=== PATIENT | male | born 1980 | race Caucasian/White ===

== ENCOUNTER 2016-12-29 11:45 | Emergency (ER) | payer OTHER ==
[~2016-12-29] VITALS: Ht 175.3 cm; Wt 77.1 kg
[2016-12-29] MEDS ORDERED: IPRATRPIUM/ALBUTEROL 0.5/2.5MG 3 ML NEBU. NEB ONE (12:15)
[2016-12-29] MEDS ORDERED: IV NORMAL SALINE 1000ML BAG 1,000 ML IV ONE (12:15)
[2016-12-29 12:42] LABS: BASO # 0.1 x10^3/uL (0.0-0.2); BASO % 1 % (0-3); EOS % 3 % (0-3); HEMATOCRIT 35.3 % (39.0-53.0); HEMOGLOBIN 12.4 g/dL (13.0-17.5); LYMPH # 2.6 x10^3/uL (1.0-4.8); LYMPH % 41 % (24-48); MEAN CORPUSCULAR HEMOGLOBIN 32 pg (25-35); MEAN CORPUSCULAR HGB CONC 35 g/dL (31-37); MEAN CORPUSCULAR VOLUME 90 fL (79-100); MONO % 8 % (0-9); NEUT % 47 % (31-73); PLATELET COUNT 236 x10^3/uL (140-400); RED BLOOD COUNT 3.92 x10^6/uL (4.30-5.70); RED CELL DISTRIBUTION WIDTH 13.2 % (11.5-14.5); WHITE BLOOD COUNT 6.4 x10^3/uL (4.0-11.0)
--- NOTE | 2016-12-29 12:46 | EKG ---
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
[2016-12-29 13:03] LABS: CALCIUM 8.1 mg/dL (8.5-10.1); CREATININE 1.3 mg/dL (0.7-1.3); GFR 62.8; POTASSIUM 4.1 mmol/L (3.5-5.1)
[2016-12-29 13:08] LABS: BILIRUBIN,URINE NEGATIVE (NEG); GLUCOSE,URINE NEGATIVE (NEG); NITRITE,URINE NEGATIVE (NEG); PH,URINE 6.5; PROTEIN,URINE NEGATIVE (NEG-TRACE); UROBILINOGEN,URINE 0.2 mg/dL (0.2 mg/dL)
--- NOTE | 2016-12-29 13:14 | RAD ---
Portable chest, 12/29/2016: History: Cough, chest pressure, shortness of breath The heart size is normal. The lungs are clear. There is no evidence of pleural fluid. There is an old healed right clavicular fracture. IMPRESSION: No acute cardiopulmonary abnormality is detected.
[2016-12-29 13:16] LABS: BARBITURATES NEG (NEG); BENZODIAZEPINES NEG (NEG); CANNABINOIDS NEG (NEG); COCAINE NEG (NEG); METHADONE NEG (NEG); OPIATES NEG (NEG); PHENCYCLIDINE NEG (NEG)
[2016-12-29 13:17] LABS: BACTERIA,URINE 0 /HPF (0-FEW); RBC,URINE 0 /HPF (0-2); WBC,URINE 0 /HPF (0-4)
[2016-12-29 13:17] LABS: ALBUMIN 3.3 g/dL (3.4-5.0); ALBUMIN/GLOBULIN RATIO 1.1 (1.0-1.7); MAGNESIUM 1.8 mg/dL (1.8-2.4); TOTAL BILIRUBIN 0.5 mg/dL (0.2-1.0); TOTAL PROTEIN 6.2 g/dL (6.4-8.2)
[2016-12-29 13:44] VITALS: BP 127/67
--- NOTE | 2016-12-29 13:46 | PHYS DOC ---
Past Medical History Past Medical History: Anxiety, Migraines Past Surgical History: No Surgical History Alcohol Use: Occasionally Drug Use: None Adult General Chief Complaint Chief Complaint: SYNCOPE HPI HPI Patient is a 36 year old male presenting to the emergency department for evaluation of a syncopal episode that occurred while having a coughing spell at work. He says that he has had some cough recently but no fevers chills shortness of breath. Patient says that he is feeling somewhat sleepy now but he denies any pain nausea vomiting. He says that he is healthy and takes no medications and denies using drugs or drinking alcohol. Review of Systems Review of Systems Constitutional: Denies fever or chills [] Eyes: Denies change in visual acuity, redness, or eye pain [] HENT: Denies nasal congestion or sore throat [] Respiratory: + cough. No shortness of breath [] Cardiovascular: No additional information not addressed in HPI [] GI: Denies abdominal pain, nausea, vomiting, bloody stools or diarrhea [] : Denies dysuria or hematuria [] Musculoskeletal: Denies back pain or joint pain [] Integument: Denies rash or skin lesions [] Neurologic: Denies headache, focal weakness or sensory changes [] Current Medications Current Medications Current Medications Medications (Trade) Dose Ordered Sig/Gricelda Start Time Stop Time Status Last Admin Dose Admin Albuterol/ Ipratropium (Duoneb) 3 ml 1X ONCE 12/29/16 12:15 12/29/16 12:19 DC 12/29/16 13:05 3 ML Sodium Chloride 1,000 ml @ 1,000 mls/hr 1X ONCE 12/29/16 12:15 12/29/16 13:14 DC 12/29/16 12:58 1,000 MLS/HR Allergies Allergies Allergies Coded Allergies Type Severity Reaction Last Updated Verified No Known Drug Allergies 12/29/16 No Physical Exam Physical Exam Constitutional: Well developed, well nourished, no acute distress, non-toxic appearance. [] HENT: Normocephalic, atraumatic, bilateral external ears normal, oropharynx moist, no oral exudates, nose normal. [] Eyes: PERRLA, EOMI, conjunctiva normal, no discharge. [] Neck: Normal range of motion, no tenderness, supple, no stridor. [] Cardiovascular:Heart rate regular rhythm, no murmur [] Lungs & Thorax: Bilateral breath sounds clear to auscultation [] Abdomen: Bowel sounds normal, soft, no tenderness, no masses, no pulsatile masses. [] Skin: Warm, dry, no erythema, no rash. [] Back: No tenderness, no CVA tenderness. [] Extremities: No tenderness, no cyanosis, no clubbing, ROM intact, no edema. [] Neurologic: Alert and oriented X 3, normal motor function, normal sensory function, no focal deficits noted. [] Current Patient Data Vital Signs Vital Signs Date Time Temp Pulse Resp B/P (MAP) Pulse Ox O2 Delivery O2 Flow Rate FiO2 12/29/16 13:08 100 Room Air 12/29/16 12:14 68 13 117/63 (81) 12/29/16 11:50 98.0 98.0 Lab Values Laboratory Tests Test 12/29/16 12:30 12/29/16 13:00 White Blood Count 6.4 x10^3/uL (4.0-11.0) Red Blood Count 3.92 x10^6/uL (4.30-5.70) L Hemoglobin 12.4 g/dL (13.0-17.5) L Hematocrit 35.3 % (39.0-53.0) L Mean Corpuscular Volume 90 fL (79-100) Mean Corpuscular Hemoglobin 32 pg (25-35) Mean Corpuscular Hemoglobin Concent 35 g/dL (31-37) Red Cell Distribution Width 13.2 % (11.5-14.5) Platelet Count 236 x10^3/uL (140-400) Neutrophils (%) (Auto) 47 % (31-73) Lymphocytes (%) (Auto) 41 % (24-48) Monocytes (%) (Auto) 8 % (0-9) Eosinophils (%) (Auto) 3 % (0-3) Basophils (%) (Auto) 1 % (0-3) Neutrophils # (Auto) 3.0 x10^3uL (1.8-7.7) Lymphocytes # (Auto) 2.6 x10^3/uL (1.0-4.8) Monocytes # (Auto) 0.5 x10^3/uL (0.0-1.1) Eosinophils # (Auto) 0.2 x10^3/uL (0.0-0.7) Basophils # (Auto) 0.1 x10^3/uL (0.0-0.2) Sodium Level 140 mmol/L (136-145) Potassium Level 4.1 mmol/L (3.5-5.1) Chloride Level 106 mmol/L (98-107) Carbon Dioxide Level 28 mmol/L (21-32) Anion Gap 6 (6-14) Blood Urea Nitrogen 22 mg/dL (8-26) Creatinine 1.3 mg/dL (0.7-1.3) Estimated GFR (Cockcroft-Gault) 62.8 BUN/Creatinine Ratio 17 (6-20) Glucose Level 102 mg/dL (70-99) H Calcium Level 8.1 mg/dL (8.5-10.1) L Magnesium Level 1.8 mg/dL (1.8-2.4) Total Bilirubin 0.5 mg/dL (0.2-1.0) Aspartate Amino Transferase (AST) 22 U/L (15-37) Alanine Aminotransferase (ALT) 29 U/L (16-63) Alkaline Phosphatase 91 U/L (46-116) Creatine Kinase 467 U/L (39-308) H Troponin I Quantitative < 0.017 ng/mL (0.000-0.055) Total Protein 6.2 g/dL (6.4-8.2) L Albumin 3.3 g/dL (3.4-5.0) L Albumin/Globulin Ratio 1.1 (1.0-1.7) Ethyl Alcohol Level < 10 mg/dL (0-10) Urine Collection Type Unknown Urine Color Yellow Urine Clarity Clear Urine pH 6.5 Urine Specific Icard 1.025 Urine Protein Negative mg/dL (NEG-TRACE) Urine Glucose (UA) Negative mg/dL (NEG) Urine Ketones (Stick) Negative mg/dL (NEG) Urine Blood Negative (NEG) Urine Nitrite Negative (NEG) Urine Bilirubin Negative (NEG) Urine Urobilinogen Dipstick 0.2 mg/dL (0.2 mg/dL) Urine Leukocyte Esterase Negative (NEG) Urine RBC 0 /HPF (0-2) Urine WBC 0 /HPF (0-4) Urine Bacteria 0 /HPF (0-FEW) Urine Hyaline Casts Occasional /HPF Urine Mucus Slight /LPF Urine Opiates Screen Neg (NEG) Urine Methadone Screen Neg (NEG) Urine Barbiturates Neg (NEG) Urine Phencyclidine Screen Neg (NEG) Urine Amphetamine/Methamphetamine Pos (NEG) Urine Benzodiazepines Screen Neg (NEG) Urine Cocaine Screen Neg (NEG) Urine Cannabinoids Screen Neg (NEG) Urine Ethyl Alcohol Neg (NEG) Laboratory Tests 12/29/16 12:30 Laboratory Tests 12/29/16 12:30 EKG EKG Normal sinus rhythm with normal axis no obvious ST elevation or depression and normal T waves. Radiology/Procedures Radiology/Procedures Portable chest, 12/29/2016: History: Cough, chest pressure, shortness of breath The heart size is normal. The lungs are clear. There is no evidence of pleural fluid. There is an old healed right clavicular fracture. IMPRESSION: No acute cardiopulmonary abnormality is detected. DICTATED and SIGNED BY: SAY RICKS MD DATE: 12/29/16 1311 Course & Med Decision Making Course & Med Decision Making Patient with syncopal episode likely related to a coughing spell. Patient is feeling much better after IV fluids here and given he can tolerate fluids by mouth he'll be discharged with supportive treatment. Patient aware and agreeable with plan for discharge and verbalized understanding of the need for short-term PCP follow-up in the strict ER return precautions discussed and clear worsening pain charts of breath or other general concerns. Dragon Disclaimer Dragon Disclaimer This electronic medical record was generated, in whole or in part, using a voice recognition dictation system. Departure Departure Impression: Primary Impression: Syncope and collapse Additional Impression: Rhabdomyolysis Disposition: 01 HOME, SELF-CARE Condition: GOOD Referrals: NO PCP (PCP) Patient Instructions: Syncope Additional Instructions: DRINK PLENTY OF FLUIDS Problem Qualifiers LATONYA GROSS DO Dec 29, 2016 13:46
== END 2016-12-29 14:00 | disposition home or self-care (01) ==
LOC: ER 11:45
DX: R55 Syncope and collapse (principal); M62.82 Rhabdomyolysis; G43.909 Migraine, unspecified, not intractable, without status migrainosus; F41.9 Anxiety disorder, unspecified
CPT/HCPCS: 36415; 71010; 80053; 80307; 81001; 82550; 83735; 84484; 85027; 93005; 94250; 94640; 96360; 99285; C1887; G0480; J7030; J7620; G0479

== ENCOUNTER 2017-01-25 08:20 | Emergency (ER) | payer OTHER ==
[~2017-01-25] VITALS: Ht 172.7 cm; Wt 95.3 kg
--- NOTE | 2017-01-25 08:41 | PHYS DOC ---
Past Medical History Past Medical History: Anxiety, Migraines, Other Additional Past Medical Histor: INGUINAL HERNIA Past Surgical History: No Surgical History Alcohol Use: Occasionally Drug Use: None Adult General Chief Complaint Chief Complaint: GROIN PAIN HPI HPI Patient is a 36 year old female with history of inguinal hernia who presents today for left groin pain that began this morning. 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 Patient denies any dysuria urgency or frequency. Denies any fever. Review of Systems Review of Systems Constitutional: Denies fever or chills [] Eyes: Denies change in visual acuity, redness, or eye pain [] HENT: Denies nasal congestion or sore throat [] Respiratory: Denies cough or shortness of breath [] Cardiovascular: No additional information not addressed in HPI [] GI: Denies abdominal pain, nausea, vomiting, bloody stools or diarrhea [] : left groin pain Musculoskeletal: Denies back pain or joint pain [] Integument: Denies rash or skin lesions [] Neurologic: Denies headache, focal weakness or sensory changes [] Endocrine: Denies polyuria or polydipsia [] Current Medications Current Medications Current Medications Medications (Trade) Dose Ordered Sig/Gricelda Start Time Stop Time Status Last Admin Dose Admin Info (Do NOT chart on this entry -- for MONITORING) 1 each PRN DAILY PRN 01/25/17 08:45 01/27/17 08:44 Iohexol (Omnipaque 300 Mg/ml) 75 ml 1X ONCE 01/25/17 08:45 01/25/17 08:46 DC 01/25/17 09:24 75 ML Morphine Sulfate 5 mg 1X ONCE 01/25/17 09:45 01/25/17 09:46 DC 01/25/17 09:48 5 MG Sodium Chloride 1,000 ml @ 1,000 mls/hr 1X ONCE 01/25/17 08:45 01/25/17 09:44 DC 01/25/17 08:44 1,000 MLS/HR Allergies Allergies Allergies Coded Allergies Type Severity Reaction Last Updated Verified No Known Drug Allergies 12/29/16 No Physical Exam Physical Exam Constitutional: Well developed, well nourished, no acute distress, non-toxic appearance. [] HENT: Normocephalic, atraumatic, bilateral external ears normal, oropharynx moist, no oral exudates, nose normal. [] Eyes: PERRLA, EOMI, conjunctiva normal, no discharge. [] Neck: Normal range of motion, no tenderness, supple, no stridor. [] Cardiovascular:Heart rate regular rhythm, no murmur [] Lungs & Thorax: Bilateral breath sounds clear to auscultation [] Abdomen: Bowel sounds normal, soft, no tenderness, no masses, no pulsatile masses. [] Male exam Testicles appear large left worse than right with palpable masses. No pain on testicles on exam. No drainage. No redness. Skin: Warm, dry, no erythema, no rash. [] Back: No tenderness, no CVA tenderness. [] Extremities: No tenderness, no cyanosis, no clubbing, ROM intact, no edema. [] Neurologic: Alert and oriented X 3, normal motor function, normal sensory function, no focal deficits noted. [] Psychologic: Affect normal, judgement normal, mood normal. [] Current Patient Data Vital Signs Vital Signs Date Time Temp Pulse Resp B/P (MAP) Pulse Ox O2 Delivery O2 Flow Rate FiO2 01/25/17 11:04 50 18 117/65 (82) 99 Room Air 01/25/17 08:32 97.7 97.7 Lab Values Laboratory Tests Test 01/25/17 08:40 01/25/17 09:15 White Blood Count 8.3 x10^3/uL (4.0-11.0) Red Blood Count 4.12 x10^6/uL (4.30-5.70) L Hemoglobin 12.7 g/dL (13.0-17.5) L Hematocrit 37.4 % (39.0-53.0) L Mean Corpuscular Volume 91 fL (79-100) Mean Corpuscular Hemoglobin 31 pg (25-35) Mean Corpuscular Hemoglobin Concent 34 g/dL (31-37) Red Cell Distribution Width 13.0 % (11.5-14.5) Platelet Count 250 x10^3/uL (140-400) Neutrophils (%) (Auto) 57 % (31-73) Lymphocytes (%) (Auto) 32 % (24-48) Monocytes (%) (Auto) 8 % (0-9) Eosinophils (%) (Auto) 2 % (0-3) Basophils (%) (Auto) 1 % (0-3) Neutrophils # (Auto) 4.8 x10^3uL (1.8-7.7) Lymphocytes # (Auto) 2.7 x10^3/uL (1.0-4.8) Monocytes # (Auto) 0.6 x10^3/uL (0.0-1.1) Eosinophils # (Auto) 0.2 x10^3/uL (0.0-0.7) Basophils # (Auto) 0.1 x10^3/uL (0.0-0.2) Sodium Level 140 mmol/L (136-145) Potassium Level 3.7 mmol/L (3.5-5.1) Chloride Level 105 mmol/L (98-107) Carbon Dioxide Level 29 mmol/L (21-32) Anion Gap 6 (6-14) Blood Urea Nitrogen 15 mg/dL (8-26) Creatinine 0.9 mg/dL (0.7-1.3) Estimated GFR (Cockcroft-Gault) 96.0 BUN/Creatinine Ratio 17 (6-20) Glucose Level 96 mg/dL (70-99) Calcium Level 8.4 mg/dL (8.5-10.1) L Total Bilirubin 0.5 mg/dL (0.2-1.0) Aspartate Amino Transferase (AST) 23 U/L (15-37) Alanine Aminotransferase (ALT) 40 U/L (16-63) Alkaline Phosphatase 67 U/L (46-116) Total Protein 6.5 g/dL (6.4-8.2) Albumin 3.4 g/dL (3.4-5.0) Albumin/Globulin Ratio 1.1 (1.0-1.7) Lipase 404 U/L (73-393) H Urine Collection Type Unknown Urine Color Yellow Urine Clarity Clear Urine pH 6.0 Urine Specific [place] 1.020 Urine Protein Negative mg/dL (NEG-TRACE) Urine Glucose (UA) Negative mg/dL (NEG) Urine Ketones (Stick) Negative mg/dL (NEG) Urine Blood Negative (NEG) Urine Nitrite Negative (NEG) Urine Bilirubin Negative (NEG) Urine Urobilinogen Dipstick 0.2 mg/dL (0.2 mg/dL) Urine Leukocyte Esterase Negative (NEG) Urine RBC Occ /HPF (0-2) Urine WBC Occ /HPF (0-4) Urine Squamous Epithelial Cells Occ /LPF Urine Bacteria Few /HPF (0-FEW) Urine Mucus Marked /LPF Laboratory Tests 01/25/17 08:40 Laboratory Tests 01/25/17 08:40 EKG EKG [] Radiology/Procedures Radiology/Procedures []PROCEDURE: CT ABD PELV W/ IV CONTRST ONLY Exam performed: CT scan of the abdomen and pelvis with contrast Clinical Indication:Left groin pain, history of internal hernia Date of Service:01/25/17 comparison: None available Technique: Contiguous helical acquisitions are obtained from the lung bases to the pelvis during intravenous administration of [75 cc of Omnipaque 300]. Sagittal and coronal reformatted images were obtained and reviewed. CT abdomen findings: The lung bases appear essentially clear. Visualized heart is normal The liver, spleen ,gall bladder and pancreas appears unremarkable. Both adrenal glands and bilateral kidneys appear normal with symmetric excretion of contrast via both kidneys. The small bowel loops appear nondilated and unremarkable. Scattered stool in the colon. There is no retroperitoneal lymphadenopathy or mass lesions. No bowel related inflammatory stranding is noted. No obvious stranding is seen in the pericecal region. CT pelvis findings: There is a 2.2 cm left inguinal hernia containing omental fat. No inflammatory changes of incarceration seen. The pelvic bowel loops are nondilated and unremarkable. Scattered stool in the colon. The urinary bladder is well distended and normal . Prostate gland, seminal vesicles and the rectum appear normal. Interrogation of bone windows demonstrates no obvious bony abnormality. Sagittal and coronal reformatted images were obtained and reviewed which demonstrate no additional findings. Impression abdomen and pelvis : 1. A 2.2 cm left inguinal hernia containing omental fat. 2. Scattered stool throughout the colon. Correlate clinically for constipation. PQRS Compliance Statement: One or more of the following individualized dose reduction techniques were utilized for this examination: 1. Automated exposure control 2. Adjustment of the mA and/or kV according to patient size 3. Use of iterative reconstruction technique DICTATED and SIGNED BY: PIPPA DENNIS MD DATE: 01/25/17 0940 CC: DUNCAN VASQUEZ APRN; NO PCP ~ PROCEDURE: TESTICULAR/SCROTUM Scrotal ultrasound 01/17/2017 Clinical history: Left scrotal swelling. Technique: Using examination of real-time ultrasound imaging and color-flow and pulse Doppler imaging techniques, duplex evaluation of the scrotal sac and its contents was performed. Multiple images were obtained. Findings: Comparison is made to the patient's CT scan of the abdomen and pelvis performed earlier today. Both testicles are within normal limits in size. The right testicle measures 4.6 x 2.7 x 2.0 cm in longitudinal, transverse, and AP dimensions. The left testicle measures 4.6 x 2.5 x 2.2 cm in size. No focal abnormality of the right testicle is seen. A 3 mm mm cyst is seen involving the anterior superior aspect of the left testicle. Normal color flow and pulse Doppler imaging to both testicles is seen. Both epididymal heads are within normal limits in size. A 6 mm cyst is seen involving the left epididymal head. No abnormality of the right epididymal head is seen. There is a small left hydrocele. No varicocele is noted. There is a moderate to large sized fat-containing left inguinal hernia. No bowel loops are seen within the hernia sac. Impression: 1. Moderate to large sized fat-containing left inguinal hernia. 2. 3 mm cyst is seen involving the left testicle. 3. 6 mm cyst is seen involving the left epididymal head. 4. Small left hydrocele. DICTATED and SIGNED BY: MEG AMOR MD DATE: 01/25/17 1131 CC: DUNCAN VASQUEZ APRN; NO PCP ~ Course & Med Decision Making Course & Med Decision Making Pertinent Labs and Imaging studies reviewed. (See chart for details) Patient is in the ED with left groin pain and bowels in his testicles from an inguinal hernia. He does have history of left inguinal hernia. He is pain free in the Ed after receiving Morphine enroute to the Ed via EMS. Patient's labs are negative for any acute findings. CT of the abdomen and pelvic with IV contrast was noted for 2.2 cm left inguinal hernia containing fat. No scattered stool throughout the colon, patient denies any constipation. I recommended [id number] bowel preps. Testicular ultrasounds were done and noted for moderate to large size fat containing left inguinal hernia, 3 mm cyst seen in the left testicle, 6 mm seen involving the left epididymal head, and small hydrocele. Patient's pain is well-controlled in the ED. We provided him a general surgeon to follow up for the inguinal hernia. We recommended he follows up with the urologist of his own choice for this cyst. He was provided return precautions and discharged in stable condition. Dragon Disclaimer Dragon Disclaimer This electronic medical record was generated, in whole or in part, using a voice recognition dictation system. Departure Departure Impression: Primary Impression: Left inguinal hernia Additional Impressions: Hydrocele in adult Epididymal cyst Constipation Disposition: HOME, SELF-CARE Condition: STABLE Referrals: NO PCP (PCP) ZULEIMA CHUA MD follow up with the provided doctor as soon as you can for the hernia Patient Instructions: Constipation, Adult, Inguinal Hernia, Adult Additional Instructions: You were seen for left inguinal hernia. We provided do a general surgeon, call his office today and set up a follow-up appointment. Contact any Hospital of your choice and establish care with a urologist. The [facility] does not have a urologist. Come back to the ED symptoms worsen. Consider taking magnesium citrate because he is CT shows you could be constipated. Scripts Polyethylene Glycol 3350 (MIRALAX) 17 Gm Powd.pack 1 PACKET PO DAILY, #30 PACKET 3 Refills Prov: DUNCAN VASQUEZ APRN 01/25/17 Hydrocodone/Apap 5-325 (NORCO 5-325 TABLET) 1 Each Tablet 1-2 TAB PO Q4-6HRS, #12 TAB Prov: DUNCAN VASQUEZ APRN 01/25/17 Problem Qualifiers Additional Impressions: Constipation Constipation type: unspecified constipation type Qualified Codes: K59.00 - Constipation, unspecified DUNCAN VASQUEZ APRN Jan 25, 2017 08:41
[2017-01-25] MEDS ORDERED: IV NORMAL SALINE 1000ML BAG 1,000 ML IV ONE (08:45)
[2017-01-25] MEDS ORDERED: CONTRAST GIVEN MC PRN (08:45)
[2017-01-25] MEDS ORDERED: IOHEXOL 300 MG/ML 75 ML VIAL IV ONE (08:45)
[2017-01-25 08:54] LABS: BASO # 0.1 x10^3/uL (0.0-0.2); BASO % 1 % (0-3); EOS % 2 % (0-3); HEMATOCRIT 37.4 % (39.0-53.0); HEMOGLOBIN 12.7 g/dL (13.0-17.5); LYMPH # 2.7 x10^3/uL (1.0-4.8); LYMPH % 32 % (24-48); MEAN CORPUSCULAR HEMOGLOBIN 31 pg (25-35); MEAN CORPUSCULAR HGB CONC 34 g/dL (31-37); MEAN CORPUSCULAR VOLUME 91 fL (79-100); MONO % 8 % (0-9); NEUT % 57 % (31-73); PLATELET COUNT 250 x10^3/uL (140-400); RED BLOOD COUNT 4.12 x10^6/uL (4.30-5.70); WHITE BLOOD COUNT 8.3 x10^3/uL (4.0-11.0)
[2017-01-25 09:13] LABS: CALCIUM 8.4 mg/dL (8.5-10.1); CREATININE 0.9 mg/dL (0.7-1.3); POTASSIUM 3.7 mmol/L (3.5-5.1)
[2017-01-25 09:14] LABS: ALBUMIN 3.4 g/dL (3.4-5.0); ALBUMIN/GLOBULIN RATIO 1.1 (1.0-1.7); TOTAL BILIRUBIN 0.5 mg/dL (0.2-1.0); TOTAL PROTEIN 6.5 g/dL (6.4-8.2)
[2017-01-25 09:32] LABS: BILIRUBIN,URINE NEGATIVE (NEG); GLUCOSE,URINE NEGATIVE (NEG); NITRITE,URINE NEGATIVE (NEG); PROTEIN,URINE NEGATIVE (NEG-TRACE); UROBILINOGEN,URINE 0.2 mg/dL (0.2 mg/dL)
[2017-01-25 09:39] LABS: BACTERIA,URINE FEW /HPF (0-FEW); SQUAMOUS EPITHELIAL CELL,UR OCC /LPF
[2017-01-25 09:40] LABS: RBC,URINE OCC /HPF (0-2); WBC,URINE OCC /HPF (0-4)
[2017-01-25] MEDS ORDERED: MORPHINE SULFATE 10 MG/ML VIAL. IV ONE (09:45)
--- NOTE | 2017-01-25 09:46 | RAD ---
Exam performed: CT scan of the abdomen and pelvis with contrast Clinical Indication:Left groin pain, history of internal hernia Date of Service:01/25/17 comparison: None available Technique: Contiguous helical acquisitions are obtained from the lung bases to the pelvis during intravenous administration of [75 cc of Omnipaque 300]. Sagittal and coronal reformatted images were obtained and reviewed. CT abdomen findings: The lung bases appear essentially clear. Visualized heart is normal The liver, spleen ,gall bladder and pancreas appears unremarkable. Both adrenal glands and bilateral kidneys appear normal with symmetric excretion of contrast via both kidneys. The small bowel loops appear nondilated and unremarkable. Scattered stool in the colon. There is no retroperitoneal lymphadenopathy or mass lesions. No bowel related inflammatory stranding is noted. No obvious stranding is seen in the pericecal region. CT pelvis findings: There is a 2.2 cm left inguinal hernia containing omental fat. No inflammatory changes of incarceration seen. The pelvic bowel loops are nondilated and unremarkable. Scattered stool in the colon. The urinary bladder is well distended and normal . Prostate gland, seminal vesicles and the rectum appear normal. Interrogation of bone windows demonstrates no obvious bony abnormality. Sagittal and coronal reformatted images were obtained and reviewed which demonstrate no additional findings. Impression abdomen and pelvis : 1. A 2.2 cm left inguinal hernia containing omental fat. 2. Scattered stool throughout the colon. Correlate clinically for constipation. PQRS Compliance Statement: One or more of the following individualized dose reduction techniques were utilized for this examination: 1. Automated exposure control 2. Adjustment of the mA and/or kV according to patient size 3. Use of iterative reconstruction technique
[2017-01-25 11:04] VITALS: BP 117/65
--- NOTE | 2017-01-25 11:39 | RAD ---
Scrotal ultrasound 01/17/2017 Clinical history: Left scrotal swelling. Technique: Using examination of real-time ultrasound imaging and color-flow and pulse Doppler imaging techniques, duplex evaluation of the scrotal sac and its contents was performed. Multiple images were obtained. Findings: Comparison is made to the patient's CT scan of the abdomen and pelvis performed earlier today. Both testicles are within normal limits in size. The right testicle measures 4.6 x 2.7 x 2.0 cm in longitudinal, transverse, and AP dimensions. The left testicle measures 4.6 x 2.5 x 2.2 cm in size. No focal abnormality of the right testicle is seen. A 3 mm mm cyst is seen involving the anterior superior aspect of the left testicle. Normal color flow and pulse Doppler imaging to both testicles is seen. Both epididymal heads are within normal limits in size. A 6 mm cyst is seen involving the left epididymal head. No abnormality of the right epididymal head is seen. There is a small left hydrocele. No varicocele is noted. There is a moderate to large sized fat-containing left inguinal hernia. No bowel loops are seen within the hernia sac. Impression: 1. Moderate to large sized fat-containing left inguinal hernia. 2. 3 mm cyst is seen involving the left testicle. 3. 6 mm cyst is seen involving the left epididymal head. 4. Small left hydrocele.
[2017-01-25] MEDS ORDERED: POLY17PO29 PO (12:10)
[2017-01-25] MEDS ORDERED: HYDR-971 PO (12:10)
== END 2017-01-25 12:15 | disposition home or self-care (01) ==
LOC: ER 08:20
DX: K40.90 Unilateral inguinal hernia, without obstruction or gangrene, not specified as recurrent (principal); N43.3 Hydrocele, unspecified; N50.3 Cyst of epididymis; K59.00 Constipation, unspecified; G43.909 Migraine, unspecified, not intractable, without status migrainosus; Z98.890 Other specified postprocedural states
CPT/HCPCS: 36415; 74177; 76870; 80053; 81001; 83690; 85025; 96361; 96374; 99285; J2270; J7030; Q9967